=== PATIENT | male | born 1980 | race Caucasian/White ===

== ENCOUNTER 2016-10-03 16:13 | Emergency (ER) | payer BC ==
[2016-10-03 16:18] VITALS: BP 127/68; TEMP 97.7; BMI 25.7
--- NOTE | 2016-10-03 17:09 | PDOC ---
History of Present Illness - General History Source: Patient Exam Limitations: No Limitations - History of Present Illness Initial Comments: 10/03/16 18:45 The patient is a 36 year old male, with a significant past medical history of HLD (no meds), who presents to the emergency department with chest pain and shortness of breath for the past couple of days. He describes his chest pain as a dull ache sensation, ranging from mild to moderate, without radiation or modifying factors. He states that he has had these symptoms before when he gets anxious. He notes that he has been having some stressors during the weekend due to some family issues. The patient denies headache and dizziness. Denies fever, chills, nausea, vomit, diarrhea and constipation. Family history: HLD, Father; open heart surgery (Age 12), mother; diabetes Allergies: None Past surgical history: None reported Social history: No alcohol, tobacco or drug use reported PMD - Dr. Granger <Jonny Avila - Last Filed: 10/03/16 18:45> <Sebastián Minaya - Last Filed: 10/03/16 19:49> - General Chief Complaint: Shortness of Breath Stated Complaint: SHORTNESS OF BREATH Time Seen by Provider: 10/03/16 17:09 Past History <Jonny Avila - Last Filed: 10/03/16 18:45> - Past Medical History Other medical history: none - Psycho/Social/Smoking Cessation Hx Anxiety: No Suicidal Ideation: No Smoking History: Never smoked Have you smoked in the past 12 months: No Information on smoking cessation initiated: No Hx Alcohol Use: No Drug/Substance Use Hx: No Substance Use Type: None <Sebastián Minaya - Last Filed: 10/03/16 19:49> - Past Medical History Allergies/Adverse Reactions: Allergies Allergy/AdvReac Type Severity Reaction Status Date / Time No Known Allergies Allergy Verified 10/03/16 16:14 Home Medications: Ambulatory Orders NK [No Known Home Medication] 10/03/16 Review of Systems - Review of Systems Able to Perform ROS?: Yes Comments:: 10/03/16 18:46 CONSTITUTIONAL: No reported: Fever, Chills, Diaphoresis, Generalized Weakness, Malaise, Loss of Appetite HEENT: No reported: Rhinorrhea, Nasal Congestion, Throat Pain, Throat Swelling, Difficulty Swallowing, Mouth Swelling, Ear Pain, Eye Pain, Visual Changes CARDIOVASCULAR: Reported: Chest pain No reported: Syncope, Palpitations, Irregular Heart Rate, Lightheadedness, Peripheral Edema RESPIRATORY: Reported: Shortness of breath No reported: Cough SOB with Exertion, Orthopnea, Wheezing, Stridor, Hemoptysis GASTROINTESTINAL: No reported: Abdominal pain, Abdominal Distension, Nausea, Vomiting, Diarrhea, Constipation, Melena, Hematochezia GENITOURINARY: No reported: Dysuria, Frequency, Urgency, Hesitancy, Flank Pain, Genital Pain MUSCULOSKELETAL: No reported: Myalgia, Arthralgia, Joint Swelling, Back pain, Neck Pain SKIN: No reported: Rash, Itching, Pallor HEMEATOLOGIC/IMMUNOLOGIC: No reported: Easy Bleeding, Easy Bruising, Lymphadenopathy, Frequent infections ENDOCRINE: No reported: Unexplained Weight Gain, Unexplained Weight Loss, Heat Intolerance , Cold Intolerance NEUROLOGIC: No reported: Headache, Focal Weakness, Paresthesias, Vertigo, Lightheadedness, Unsteady Gait, Seizure, Mental Status Changes, Incontinence PSYCHIATRIC: No reported: Anxiety, Depression <Jonny Avila - Last Filed: 10/03/16 18:45> *Physical Exam - Vital Signs Last Vital Signs Temp Pulse Resp BP Pulse Ox 97.7 F 66 18 127/68 98 10/03/16 16:14 10/03/16 16:14 10/03/16 16:14 10/03/16 16:14 10/03/16 16:14 - Physical Exam Comments: 10/03/16 18:46 GENERAL: The patient is awake, alert, and fully oriented, Nontoxic - in no acute distress. HEAD: Normocephalic, atraumatic. EYES: extraocular movements intact, sclera anicteric, conjunctiva clear. ENT: Normal voice, Moist mucous membranes. NECK: Normal range of motion, supple LUNGS: Breath sounds equal, clear to auscultation bilaterally. No wheezes, no rhonchi, no rales. HEART: Regular rate and rhythm, without murmur, rub or gallop. ABDOMEN: Soft, nontender, normoactive bowel sounds. No guarding, no rebound.No CVA tenderness EXTREMITIES: Normal range of motion, no edema. No clubbing or cyanosis. No cords, erythema, or tenderness. NEUROLOGICAL: No facial assymetry, Normal speech, PSYCH: Normal mood, normal affect. SKIN: Warm, Dry, normal turgor <Jonny Avila - Last Filed: 10/03/16 18:45> - Vital Signs Last Vital Signs Temp Pulse Resp BP Pulse Ox 97.7 F 66 18 127/68 98 10/03/16 16:14 10/03/16 16:14 10/03/16 16:14 10/03/16 16:14 10/03/16 16:14 <Sebastián Minaya - Last Filed: 10/03/16 19:49> Heart Score/ECG Review - ECG Impressions Comment:: 10/03/16 18:28 Twelve-lead EKG was performed and reviewed by me. There is normal sinus rhythm with a normal rate. Rate of 65 The axis is normal. Incomplete right bundle-branch block There is normal R wave progression There are no ST or T wave abnormalities. No ST changes suggestive of ischemia <Sebastián Minaya - Last Filed: 10/03/16 19:49> ED Treatment Course - LABORATORY CBC & Chemistry Diagram: 10/03/16 18:00 10/03/16 18:00 - ADDITIONAL ORDERS Additional order review: 10/03/16 18:00 RBC 5.00 MCV 92.3 MCHC 34.2 RDW 12.7 MPV 8.7 Neutrophils % 51.6 Lymphocytes % 37.9 Monocytes % 6.7 Eosinophils % 2.8 Basophils % 1.0 - Medications Given in the ED: ED Medications Discontinued Medications Generic Name Dose Route Start Last Admin Trade Name Freq PRN Reason Stop Dose Admin Aspirin 162 mg 10/03/16 17:44 10/03/16 17:49 Asa - PO 10/03/16 17:45 162 mg ONCE ONE Administration <Jonny Avila - Last Filed: 10/03/16 18:45> - LABORATORY CBC & Chemistry Diagram: 10/03/16 18:00 10/03/16 18:00 - RADIOLOGY Radiology Studies Ordered: Category Date Time Status CHEST PA & LAT [RAD] Stat Radiology 10/03/16 16:18 Completed <Sebastián Minaya - Last Filed: 10/03/16 19:49> Medical Decision Making - Medical Decision Making 10/03/16 17:45 36y M hx of bordrline hl, presents with mild chest pressure, sob, nonexertional. on exam pt well appearing no distress, exam unremarkable consider acs, however low risk and pt very asypmtomatic suspect anxiety, doubt acs will obtain cxr, ekg, blood work 10/03/16 18:28 the patient's chest x-ray reveals some nodular entities, we'll have the patient follow this as an outpatient i discussed this finding with him and will have him fu with dr. granger to have this monitored. A portion of this note was documented by scribe services under my direction. I have reviewed the details of the note, within reason, and agree with the documentation with the following case summary and management plan written by me <Sebastián Minaya - Last Filed: 10/03/16 19:49> *DC/Admit/Observation/Transfer - Attestations Scribe Attestion: 10/03/16 18:46 Documentation prepared by Jonny Avila, acting as medical records assistant for Sebastián Minaya MD <Jonny Avila - Last Filed: 10/03/16 18:45> - Discharge Dispostion Admit: No <Sebastián Minaya - Last Filed: 10/03/16 19:49> Diagnosis at time of Disposition: Anxiety - Discharge Dispostion Disposition: HOME Condition at time of disposition: Improved - Referrals Referrals: Vidal Granger MD [Primary Care Provider] - - Patient Instructions Printed Discharge Instructions: DI for Anxiety -- Adult, DI for Atypical Chest Pain Additional Instructions: Return to the emergency department immediately with ANY new, persistent or worsening symptoms. You MUST call and follow up with your doctor tomorrow for further evaluation of your symptoms. Results were discussed with you. Please make sure your doctor reviews the results of your emergency evaluation. If you had any xrays during your visit, it was read preliminarily by myself, a Radiologist will review it and if there are any additional findings we will call you. Print Language: PERUVIAN
[2016-10-03] MEDS ORDERED: ASPIRIN 81 MG CHEWABLE TABLETS PO ONE (17:44)
[2016-10-03] MEDS ORDERED: ASPIRIN 81 MG CHEWABLE TABLETS ONE (17:50)
[2016-10-03 18:16] LABS: EOSINOPHIL 2.8 % (0-4.5); MCH 31.6 pg (25.7-33.7); MCHC 34.2 g/dl (32.0-35.9); MEAN CELL VOLUME 92.3 fl (80-96); MEAN PLT VOLUME 8.7 fl (7.5-11.1); NEUTROPHILS 51.6 % (42.8-82.8); PLATELET COUNT 209 K/MM3 (134-434); RDW 12.7 % (11.9-15.9); WHITE BLOOD COUNT 8.6 K/mm3 (4.0-10.0)
[2016-10-03 18:48] LABS: ALBUMIN 4.1 g/dl (3.4-5.0); ALK PHOS 78 U/L (45-117); ANION GAP 10 (8-16); BILIRUBIN,TOTAL 0.5 mg/dL (0.2-1.0); CALCIUM 8.9 mg/dL (8.5-10.1); CO2 29 mmol/L (21-32); CREATININE 1.1 mg/dL (0.7-1.3); GLUCOSE,RANDOM 75 mg/dL (74-106); SGOT/AST 23 U/L (15-37); SGPT/ALT 51 U/L (12-78); TOT PROT 7.3 g/dl (6.4-8.2)
[2016-10-03 18:50] LABS: TROPONIN I < 0.02 ng/ml (0.00-0.05)
[2016-10-03 19:20] VITALS: PULSE 75
--- NOTE | 2016-10-04 11:30 | EKG ---
Test Reason : Blood Pressure : / mmHG Vent. Rate : 065 BPM Atrial Rate : 065 BPM P-R Int : 204 ms QRS Dur : 110 ms QT Int : 408 ms P-R-T Axes : 036 083 061 degrees QTc Int : 424 ms NORMAL SINUS RHYTHM WITH SINUS ARRHYTHMIA INCOMPLETE RIGHT BUNDLE BRANCH BLOCK BORDERLINE ECG NO PREVIOUS ECGS AVAILABLE Confirmed by MONICA BANSAL MD ([id number]) on 10/04/2016 11:30:26 AM Referred By: Confirmed By:MONICA BANSAL MD
== END 2016-10-03 19:37 | disposition home or self-care (01) ==
LOC: JER 16:13
DX: F41.9 Anxiety disorder, unspecified (principal)
CPT/HCPCS: 36415; 71020-TC; 80053; 82550; 84484; 85025; 93005; 93010; 99282-25

== ENCOUNTER 2017-03-01 18:18 | Emergency (ER) | payer BC ==
[2017-03-01 18:23] VITALS: BP 139/75; PULSE 75; TEMP 98.6; BMI 25.7
[2017-03-01] MEDS ORDERED: KETOROLAC TROMETHAMINE 30 MG/1 ML VIAL IM ONE (19:11)
[2017-03-01] MEDS ORDERED: diazePAM 5 MG TABLET PO ONE ×2 (19:11→20:25)
[2017-03-01] MEDS ORDERED: KETOROLAC TROMETHAMINE 30 MG/1 ML VIAL ONE (19:12)
[2017-03-01] MEDS ORDERED: diazePAM 5 MG TABLET ONE ×2 (19:12→20:26)
--- NOTE | 2017-03-01 19:22 | PDOC ---
History of Present Illness - General Chief Complaint: Back Pain Stated Complaint: BACK PAIN Time Seen by Provider: 03/01/17 18:58 History Source: Patient Exam Limitations: No Limitations - History of Present Illness Initial Comments: 03/01/17 19:13 This is a 37yo man with PMH of herniated discs who presents today with back pain starting while on vacation in [place]. HE was given Toradol and a "muscle relaxant" by his billy's father who is a physician. The medications relieved the pain and he was able to fly home without incident. Today, he was at work and felt a twinge in his lumbar area s/p twisting while trying to stand up from an office chair. He denies trauma. He denies numbness, tingling, saddle anesthesia or incontinence or urine and stool. PMH- lumbar disc herniations PSH- denies Occupation- assistant office manager ETOH- occasional Tob- Denies Illicits- denies Recently traveled to [place] Pain P- lumbar region Q- sharp R- down BLE S- 8/10 T- 3 days ago with reinjury today Severity: reports: moderate Pain Location: reports: back (lumbar region) Method of Injury: Yes: other (twisted while standing) Modifying Factors: improves with: None Past History - Travel Traveled outside of the country in the last 30 days: No Close contact w/someone who was outside of country & ill: No - Past Medical History Allergies/Adverse Reactions: Allergies Allergy/AdvReac Type Severity Reaction Status Date / Time No Known Allergies Allergy Verified 03/01/17 18:19 Home Medications: Ambulatory Orders NK [No Known Home Medication] 10/03/16 Hypercholesterolemia: Yes Psychiatric Problems: Yes (anxiety) - Immunization History Immunization Up to Date: Yes - Psycho/Social/Smoking Cessation Hx Anxiety: Yes Suicidal Ideation: No Smoking History: Never smoked Have you smoked in the past 12 months: No Information on smoking cessation initiated: No Hx Alcohol Use: No Drug/Substance Use Hx: No Substance Use Type: None Review of Systems - Review of Systems Able to Perform ROS?: Yes Is the patient limited Khmer proficient: No Constitutional: No: Symptoms Reported HEENTM: No: Symptoms Reported Respiratory: No: Symptoms reported Cardiac (ROS): No: Symptoms Reported ABD/GI: No: Symptoms Reported : No: Symptoms Reported Musculoskeletal: Yes: See HPI Integumentary: No: Symptoms Reported Neurological: No: Symptoms reported *Physical Exam - Vital Signs Last Vital Signs Temp Pulse Resp BP Pulse Ox 98.6 F 75 18 139/75 98 03/01/17 18:19 03/01/17 18:19 03/01/17 18:19 03/01/17 18:19 03/01/17 18:19 - Physical Exam General Appearance: Yes: Appropriately Dressed. No: Apparent Distress HEENT: positive: EOMI, CONCHIS, Normal ENT Inspection Neck: positive: Trachea midline, Supple. negative: Tender Respiratory/Chest: positive: Lungs Clear, Normal Breath Sounds. negative: Chest Tender, Respiratory Distress, Accessory Muscle Use Cardiovascular: positive: Regular Rhythm, Regular Rate, S1, S2. negative: Edema , JVD, Murmur Gastrointestinal/Abdominal: positive: Normal Bowel Sounds, Soft. negative: Tender Musculoskeletal: positive: Normal Inspection. negative: CVA Tenderness Extremity: positive: Normal Inspection, Normal Range of Motion. negative: Tender Integumentary: positive: Normal Color, Dry, Warm Neurologic: positive: wash driller helper II-XII NML intact, Fully Oriented, Alert, Normal Mood/ Affect, Normal Response, Motor Strength 5/5 Medical Decision Making - Medical Decision Making 03/01/17 19:22 This is a 37yo man with PMH of herniated discs who presents today with back pain starting while on vacation in [place]. HE was given Toradol and a "muscle relaxant" by his billy's father who is a physician. The medications relieved the pain and he was able to fly home without incident. Today, he was at work and felt a twinge in his lumbar area s/p twisting while trying to stand up from an office chair. He denies trauma. He denies numbness, tingling, saddle anesthesia or incontinence or urine and stool. Full sensation to BLE. Strength 5 /5 in extremities x4. Pain worsens with change of position. No deformity of step -offs present on palpation of spine. Dx: back pain - valium 5mg PO now - Toradol 30mg IM now - reassess - imaging deferred 2/2 absence of neurological findings 03/01/17 21:32 pain moderately relieved after Valium 10mg. Patient made aware of exam findings. Patient in agreement to f/u with PMD and was given referral to ortho/ spine surgeon. All questions answered and I will discharge home with f/u. *DC/Admit/Observation/Transfer Diagnosis at time of Disposition: Lower back pain Qualifiers: Chronicity: acute Back pain laterality: midline Sciatica presence: unspecified whether sciatica present Qualified Code(s): M54.5 - Low back pain - Discharge Dispostion Disposition: HOME Condition at time of disposition: Improved Admit: No - Referrals Referrals: Vidal Lei MD [Primary Care Provider] - Elvis Watson MD [Staff Physician] - - Patient Instructions Printed Discharge Instructions: DI for Low Back Pain Additional Instructions: Return to ER for numbness in your groin, genitals or buttocks, inability to control bowel movements or urine flow or any other concerns. - Post Discharge Activity Work/School Note: Back to Work
== END 2017-03-01 21:39 | disposition home or self-care (01) ==
LOC: JERFT 18:18
PROC: 3E0233Z Introduction of Anti-inflammatory into Muscle, Percutaneous Approach (ICD-10-PCS; principal; 2017-03-01)
DX: M54.5 Low back pain (principal); E78.00 Pure hypercholesterolemia, unspecified; F41.9 Anxiety disorder, unspecified
CPT/HCPCS: 99281-25

== ENCOUNTER 2017-06-06 12:59 | Emergency (ER) | payer BC ==
[2017-06-06 13:17] VITALS: BP 154/84; PULSE 99; TEMP 98.1
--- NOTE | 2017-06-06 14:26 | PDOC ---
History of Present Illness - General Chief Complaint: Back Pain Stated Complaint: LOWER BACK PAIN Time Seen by Provider: 06/06/17 14:02 History Source: Patient Exam Limitations: No Limitations ( ) - History of Present Illness Initial Comments: 06/06/17 14:58 My Chief Complaint: Lower back pain mid and bilaterally radiates to lateral thighs intermittently 06/06/17 15:00 History of Present Illness: Pt. is a 37yo man with PMH of herniated discs who presents today with worsening lower back since 06/03/17 after taking a shower at home. He reports that pain is in his mid lumbar sacral spine and intermittently on left lumbar para spinal area and right lumbar sacral paraspinal area with intermittent radiation down bilateral thighs. Patient took multiple back 15 mg this morning at 9 AM without any relief of pain. Patient reports that he has been having intermittent back pain since his early 20s. Patient had his last MRI in 2013 of his lumbar sacral spine. Patient is asking to get an MRI of his lumbar sacral spine here today patient was given explanation that he needs to follow up with an orthopedist or neurologist as soon as possible to expedite getting an MRI of his spine. Patient reports the pain currently is a 10 out of 10 sharp in nature and is worse when trying to get up from a seated or lying down position. He denies numbness, tingling, saddle anesthesia or incontinence or urine and stool. 06/06/17 15:04 PCP: Dr. Lei Occurred: reports: other (3 days ) Severity: reports: severe (rt. sd) Pain Location: reports: back (mid, rt. lower back, intermittent left lower back radiates down thighs laterally intermittently, ) Method of Injury: Yes: unknown Modifying Factors: improves with: None Loss of Consciousness: no loss of consciousness Associated Symptoms (Fall): denies symptoms, muscle spasms (b/l lower back ) Past History - Past Medical History Allergies/Adverse Reactions: Allergies Allergy/AdvReac Type Severity Reaction Status Date / Time No Known Allergies Allergy Verified 06/06/17 13:17 Home Medications: Ambulatory Orders Oxycodone HCl/Acetaminophen [Percocet 5-325 mg Tablet] 1 - 2 tab PO Q6H PRN #20 tab MDD 8 06/06/17 COPD: No Hypercholesterolemia: Yes Psychiatric Problems: Yes (anxiety) Other medical history: HERNIATED LUMBAR DISC - Immunization History Immunization Up to Date: Yes - Suicide/Smoking/Psychosocial Hx Smoking History: Never smoked Have you smoked in the past 12 months: No Hx Alcohol Use: Yes (SOCIAL) Drug/Substance Use Hx: No Substance Use Type: None Review of Systems - Review of Systems Able to Perform ROS?: Yes Constitutional: No: Symptoms Reported HEENTM: No: Symptoms Reported Respiratory: No: Symptoms reported Cardiac (ROS): No: Symptoms Reported ABD/GI: No: Symptoms Reported : No: Symptoms Reported Musculoskeletal: Yes: Back Pain (mid and intermittent rt. and left lower back pain worse on rt. radiates intermittently lateral thighs) Integumentary: No: Symptoms Reported Neurological: No: Symptoms reported *Physical Exam - Vital Signs Last Vital Signs Temp Pulse Resp BP Pulse Ox 98.1 F 99 H 20 154/84 98 06/06/17 13:15 06/06/17 13:15 06/06/17 13:15 06/06/17 13:15 06/06/17 13:15 - Physical Exam General Appearance: Yes: Appropriately Dressed Respiratory/Chest: positive: Lungs Clear, Normal Breath Sounds. negative: Chest Tender, Respiratory Distress Cardiovascular: positive: Regular Rhythm, Regular Rate, S1, S2 Musculoskeletal: positive: Normal Inspection, Decreased Range of Motion (with anterior flexion at waist ), Muscle Spasm (rt. & left lumbar paraspinal muscles ), Vertebral Tenderness (mid lumbar, sacral, rt. lateral lumbar/sacral ). negative: CVA Tenderness, CVA Tenderness (R), CVA Tenderness (L) Extremity: positive: Normal Capillary Refill, Normal Inspection, Normal Range of Motion Integumentary: positive: Normal Color Neurologic: positive: Alert, Normal Response, Motor Strength 5/5 (b/l legs ), Respond to painful stimul, Responsive, Other (negative SLR b/l ). negative: Numbness, Sensory Deficit (b/l legs ) Deep Tendon Reflexes: Knee (L): 4+, Knee (R): 4+ Medical Decision Making - Medical Decision Making 06/06/17 15:03 Pt. is a 37yo man with PMH of herniated discs who presents today with back pain starting while on vacation in [place]. HE was given Toradol and a "muscle relaxant" by his fiancee's father who is a physician. The medications relieved the pain and he was able to fly home without incident. Today, he was at work and felt a twinge in his lumbar area s/p twisting while trying to stand up from an office chair. He denies trauma. He denies numbness, tingling, saddle anesthesia or incontinence or urine and stool. 06/06/17 16:30 lumbar/sacral back pain PLAN: percocet 5mg/325 mg po now pain slightly relieved percocet 5mg/325 mg po second dose given feeling better pain has lessened pt. to follow up with Dr. Morales on 06/08/17 at 1 pm *DC/Admit/Observation/Transfer Diagnosis at time of Disposition: Lumbar radiculopathy - Discharge Dispostion Disposition: HOME Condition at time of disposition: Stable - Prescriptions Prescriptions: Oxycodone HCl/Acetaminophen [Percocet 5-325 mg Tablet] 1 - 2 tab PO Q6H PRN #20 tab MDD 8 PRN Reason: Severe Pain - Referrals Referrals: Vidal Lei MD [Primary Care Provider] - Rocky Lombardi MD, [facility] [Staff Physician] - Mikael Victoria MD [Staff Physician] - - Patient Instructions Additional Instructions: Follow up with Dr. Lombardi as scheduled for 06/08/2017 at 1 PM Return to emergecy room if any numbness of private area, legs, worsening pain, loss of control of bladder or bowel movements avoid getting up from lying or sitting position quickly or any lifting or exercise patient voiced understanding of discharge instructions and all questions were answered - Post Discharge Activity Forms/Work/School Notes: Back to Work
[2017-06-06 15:37] LABS: URINE APPEARANCE CLEAR; URINE BILIRUBIN NEGATIVE (NEGATIVE); URINE BLOOD NEGATIVE (NEGATIVE); URINE COLOR LT. YELLOW; URINE GLUCOSE (UA) NEGATIVE (NEGATIVE); URINE KETONE NEGATIVE (NEGATIVE); URINE NITRITE NEGATIVE (NEGATIVE); URINE PROTEIN NEGATIVE (NEGATIVE); URINE UROBILINOGEN 0.2 mg/dL (0.2-1.0)
[2017-06-06 19:33] LABS: URINE LEUK ESTERASE Negative (NEGATIVE)
== END 2017-06-06 16:46 | disposition home or self-care (01) ==
LOC: JERFT 12:59
DX: M54.16 Radiculopathy, lumbar region (principal)
CPT/HCPCS: 81003; 99281-25